=== PATIENT | male | born 1950 | race Caucasian/White ===

== ENCOUNTER 2017-12-12 19:01 | Emergency (ER) | payer BC ==
[~2017-12-12] VITALS: Ht 172.7 cm; Wt 86.2 kg
[~2017-12-12 19:01] MED LIST: ADVAIR 500/501 E1 INH; CARVEDILOL3.125 MG PO; CLOPIDOGREL75 MG PO; COMBIVENT1 AR1 IH; DAILY MULTIPLE1 TAB PO; ECOTRIN81 MG PO; FLEXERIL10 MG PO; GLUCOPHAGE500 M1 PO; MOTRIN800 MG PO; NITROSTAT0.4 MG SL; OMEGA-3 FISH1000 MG PO; PREDNICOT20 MG PO; ZESTRIL,PRINIVIL5 MG PO; ZOCOR20 MG PO
[2017-12-12 19:46] LABS: BASO % 0.2 % (0.0-1.0); EOS # 0.4 10*3/uL (0.0-0.4); EOS % 3.2 % (1.0-4.0); HEMATOCRIT 45.5 % (42.0-52.0); HEMOGLOBIN 15.2 g/dl (14.0-18.0); LYMPH # 3.2 10*3/uL (1.3-4.4); LYMPH % 23.1 % (27.0-41.0); MEAN CELL VOLUME 97.4 fl (80.0-94.0); MEAN CORPUSCULAR HGB 32.5 pg (27.0-31.0); MEAN CORPUSCULAR HGB CONC 33.4 g/dl (33.0-37.0); MONO # 1.4 10*3/uL (0.1-1.0); MONO % 9.8 % (3.0-9.0); NEUT # 8.8 10*3/uL (2.3-7.9); NEUT % 63.3 % (47.0-73.0); PLATELET COUNT AUTOMATED 223 10*3/uL (130-400); RED BLOOD COUNT 4.67 10*6/uL (4.50-5.90); RED CELL DISTRI WIDTH 12.6 % (0-14.5); WHITE BLOOD COUNT 13.9 10*3/uL (4.8-10.8)
[2017-12-12 20:07] LABS: ALBUMIN 3.7 gm/dl (3.1-4.5); ALKALINE PHOSPHATASE 108 U/L (45-117); BUN 12 mg/dl (7-24); CHLORIDE 106 mmol/L (98-107); CREATININE 1.04 mg/dL (0.70-1.30); LIPASE 159 U/L (73-393); POTASSIUM 4.2 mmol/L (3.5-5.1); SGOT/AST 20 IU/L (3-35); SGPT/ALT 29 U/L (12-78); SODIUM 141 mmol/L (136-145); TOTAL PROTEIN 7.8 gm/dL (6.4-8.2)
[2017-12-12 20:09] LABS: BILIRUBIN NEGATIVE (NEGATIVE); BLOOD NEGATIVE (NEGATIVE); CLARITY CLEAR (CLEAR); COLOR YELLOW (YELLOW); GLUCOSE NEGATIVE (NEGATIVE); KETONE NEGATIVE (NEGATIVE); LEUKO ESTERASE NEGATIVE (NEGATIVE); NITRITE NEGATIVE (NEGATIVE); SPECIFIC GRAVITY <= 1.005 (1.005-1.030); UROBILINOGEN 0.2 E.U./dl (0.2-1.0)
[2017-12-12 20:21] LABS: BACTERIA 1+; EPITHELIAL CELLS 0-2; RBC 0-2 rbc/hpf (0-2); WBC 0-2 wbc/hpf (0-5)
[2017-12-12 21:24] VITALS: BP 143/81
[2017-12-12] MEDS ORDERED: FLAGYL500 MG PO (21:29)
[2017-12-12] MEDS ORDERED: CIPRO500 MG PO (21:29)
== END 2017-12-12 23:00 | disposition home or self-care (01) ==
LOC: ED 19:01
PROVIDERS: Student in an Organized Health Care Education/Training Program
DX: K57.92 Diverticulitis of intestine, part unspecified, without perforation or abscess without bleeding (principal); Z79.82 Long term (current) use of aspirin; Z79.899 Other long term (current) drug therapy

== ENCOUNTER 2017-12-15 15:25 | Emergency (ER) | payer BC ==
[~2017-12-15] VITALS: Ht 175.2 cm; Wt 88.5 kg
[~2017-12-15 15:25] MED LIST changes: +CIPRO500 MG PO; +FLAGYL500 MG PO
[2017-12-15 17:00] VITALS: BP 104/63
[2017-12-15 17:04] LABS: BASO % 0.3 % (0.0-1.0); EOS # 0.4 10*3/uL (0.0-0.4); EOS % 3.1 % (1.0-4.0); HEMATOCRIT 36.4 % (42.0-52.0); HEMOGLOBIN 12.3 g/dl (14.0-18.0); LYMPH # 1.9 10*3/uL (1.3-4.4); LYMPH % 16.4 % (27.0-41.0); MEAN CELL VOLUME 98.6 fl (80.0-94.0); MEAN CORPUSCULAR HGB 33.3 pg (27.0-31.0); MEAN CORPUSCULAR HGB CONC 33.8 g/dl (33.0-37.0); MEAN PLATELET VOLUME 10.8 fl (9.6-12.3); MONO # 1.2 10*3/uL (0.1-1.0); MONO % 9.9 % (3.0-9.0); NEUT # 8.3 10*3/uL (2.3-7.9); PLATELET COUNT AUTOMATED 220 10*3/uL (130-400); RED BLOOD COUNT 3.69 10*6/uL (4.50-5.90); RED CELL DISTRI WIDTH 12.4 % (0-14.5); WHITE BLOOD COUNT 11.8 10*3/uL (4.8-10.8)
[2017-12-15 17:21] LABS: ALBUMIN 2.9 gm/dl (3.1-4.5); ALKALINE PHOSPHATASE 80 U/L (45-117); BUN 18 mg/dl (7-24); CHLORIDE 110 mmol/L (98-107); CREATININE 1.07 mg/dL (0.70-1.30); POTASSIUM 3.9 mmol/L (3.5-5.1); SGOT/AST 18 IU/L (3-35); SGPT/ALT 25 U/L (12-78); SODIUM 141 mmol/L (136-145); TOTAL PROTEIN 6.1 gm/dL (6.4-8.2)
[2017-12-15 17:24] LABS: TROPONIN I 0.053 ng/ml (<0.045)
== END 2017-12-15 18:20 | disposition left against medical advice (07) ==
LOC: ED 15:25
PROVIDERS: Emergency Medicine
DX: R07.89 Other chest pain (principal); K92.2 Gastrointestinal hemorrhage, unspecified; K57.32 Diverticulitis of large intestine without perforation or abscess without bleeding; I25.2 Old myocardial infarction; Z90.49 Acquired absence of other specified parts of digestive tract; Z98.890 Other specified postprocedural states; Z79.82 Long term (current) use of aspirin; Z79.899 Other long term (current) drug therapy; Z95.5 Presence of coronary angioplasty implant and graft

== ENCOUNTER 2017-12-21 07:48 | Inpatient (IN) | payer BC, MEDICARE ==
[~2017-12-21] VITALS: Ht 172.7 cm; Wt 82.7 kg
[2017-12-21] VITALS (10 sets, daily range): BP systolic 88–118; BP diastolic 44–68
--- NOTE | ~2017-12-21 | CON ---
[place], [place] REPORT OF CONSULTATION NAME: [facility]ODER [facility] #: [id number] UNIT #: [id number] ROOM: [facility] DOCTOR: YSABEL JAIMES MD BIRTHDATE: [birth year] DOS: 12/21/2017 REASON FOR CONSULTATION: Chest discomfort, rectal bleeding. HISTORY OF PRESENT ILLNESS: The patient is a 67-year-old man who was seen in the intensive care unit today 12/21/2017 with his in attendance. He does have a long history of atherosclerotic heart disease and tells me that he presented initially with IL in 1994. He was catheterized at the [facility], [place] and a stent was placed. Those records are not currently available. He has subsequently had other events and has received a total of 6 stents. He has had catheterization at the [facility] and [facility] in [place]. His most recent catheterization in July 2013 was prompted by a myocardial infarction. He had a single stent placed at that time and again the records are not available. Currently, he follows with Dr. Vallecillo at the [facility] in [place]. The patient began having problems recently with heavy rectal bleeding about a week or two ago. He is passing bright red blood from his rectum with clots. He has been to the emergency room several times and was advised admission, but resisted. The first of these episodes occurred a little over a week ago at which time he not only was having bright red blood per rectum, but also having some chest heaviness. He states this was different from the chest pain he had had previously with myocardial infarctions and he believes that it was just due to anxiety; however, my concern is that he does have established coronary artery disease with an ischemic cardiomyopathy and rectal bleeding is probably the significant hemodynamic stress; therefore, this may still represent angina. PAST MEDICAL HISTORY: Includes 1. Coronary artery disease, status post multiple catheterizations and a total of 6 stents in the past. Details are not available. 2. Diverticulitis. 3. GI bleeding. 4. Hyperlipidemia. 5. Hypertension. 6. History of cholecystectomy. MEDICATIONS: Prior to admission, Advair Diskus 500/50 one puff b.i.d., aspirin 81 mg per day, clopidogrel 75 mg per day, carvedilol 3.125 mg b.i.d., lisinopril 5 mg daily, metronidazole 500 mg t.i.d., ciprofloxacin 500 mg b.i.d., multivitamin daily and simvastatin 20 mg at bedtime. ALLERGIES: He lists no known drug allergies. FAMILY HISTORY: His father at age 70 and mother of lung cancer at age 75. There is no family history of early coronary disease. REVIEW OF SYSTEMS: The patient denies diplopia, loss of vision. Denies focal weakness. He denies fevers, chills, sweats or recent weight change. He has had some nausea and vomiting. He has had episodes of lightheadedness, especially with change in posture. He has had the episode of chest heaviness noted above. [place], [place] REPORT OF CONSULTATION NAME: TYLER YODER UNIT #: [id number] ROOM: [facility] DOCTOR: YSABEL JAIMES MD BIRTHDATE: [birth year] He denies hematemesis or hemoptysis. He has had some abdominal distention and abdominal discomfort. He denies any hematuria. He did have 1 syncopal episode after a heme-positive stool. He denies any peripheral edema or skin rashes. He denies any hot or swollen joints. Remainder of the review of systems is negative except as noted above. SOCIAL HISTORY: The patient is and lives with his . He was a smoker, but quit. He does not consume any alcohol currently. PHYSICAL EXAMINATION: GENERAL: Reveals a well-nourished white male who is awake, alert and oriented. VITAL SIGNS: Pulse is 60 and regular, blood pressure is 118/68. He is afebrile. He weighs 82.7 kg and has a body mass index 27.7. HEENT: Normocephalic and atraumatic. Extraocular muscles are intact. Sclerae are clear. Pupils are equal, round and react to light. The oral mucosa is moist. Tongue is midline. NECK: Supple. He has no jugular distention. Carotids are full. He has no bruits. He has no neck or supraclavicular masses, no thyromegaly. LUNGS: Respirations are unlabored. His chest is clear to auscultation and percussion. He has no presacral edema or chest wall tenderness. CARDIOVASCULAR: His heart has a regular rhythm. He has a fourth heart sound, but no third heart sound or murmur. The PMI is not displaced. He has no precordial heave, lift or thrill. ABDOMEN: Soft and normally active. It is nontender. There are no masses or organomegaly. There is no rebound. EXTREMITIES: Showed no clubbing, cyanosis or edema. Peripheral pulses are palpable in the feet. LABORATORY DATA: His electrocardiogram shows sinus rhythm with small inferior Q-waves, no acute ST elevation or depression is present. Troponin levels are minimally elevated at 0.034 and 0.036; on 12/15/2017 when his bleeding first began, the troponin was 0.053. IMPRESSIONS: 1. History of coronary artery disease. 2. Ischemic cardiomyopathy. Echocardiogram in December 2012 showed an ejection fraction between 35 and 40% with a mildly dilated left ventricle and mid to distal anterior septal apical severe hypokinesis. The basal inferior wall was also akinetic. No thrombus was seen. 3. Status post several catheterizations with multiple stents placed. 4. History of hypertension. 5. History of hyperlipidemia. 6. Presentation with acute lower gastrointestinal bleeding. 7. Chest discomfort and minimally elevated troponin levels. This may be due to demand ischemia, but may be also unstable angina. PLAN: I agree with the transfusion that the patient is receiving and we will observe him carefully with his other physicians. I think that a better idea of his current cardiac condition will be very helpful as we plan surgical management; therefore, I will proceed with a pharmacologic stress test within [place], [place] REPORT OF CONSULTATION NAME: TYLER YODER UNIT #: [id number] ROOM: [facility] DOCTOR: YSABEL JAIMES MD BIRTHDATE: [birth year] the next 24 hours. Further recommendations will depend upon the results of the stress test. [facility] and I thank the hospitalist physicians for asking our advice regarding the patient's care. YSABEL JAIMES MD CM:CONSTR:REPORT OF CONSULTATION 1706 12/21/17 [id number] interface
--- NOTE | ~2017-12-21 | PR ---
[place], [place] PROGRESS NOTE NAME: TYLER YODER [facility] #: [id number] UNIT #: [id number] ROOM: [facility] DOCTOR: YSABEL JAIMES MD BIRTHDATE: [birth year] DOS: 12/22/2017 SUBJECTIVE: The patient was seen in the Cardiology Department just prior to his stress test on 12/22/2017. He is a 67-year-old man who has a history of coronary artery disease and is currently being followed by Dr. Vallecillo at the [facility]. He presented now with a week or so of bright red blood per rectum. He was bleeding heavily. About a week prior to the hospitalization, he also has noticed some heaviness in his chest. This was different from what he had experienced previously with acute coronary syndrome, but was concerning, especially when we are considering further GI evaluation and treatment. Overnight, he has had no further chest discomfort. He has had a decrease in the amount of blood per rectum, but he still states that he has some dark blood in his stools. He has had no palpitations or lightheadedness. Serial troponin levels have shown a slight elevation with a maximum measured troponin level of 0.087. His hemoglobin on admission was 12.1 and has fallen to 11.3 despite the fact that he was given blood shortly after admission. OBJECTIVE: VITAL SIGNS: On exam today, his pulse is 66 and regular, blood pressure is 100/65. He is afebrile. NECK: Supple. He has no jugular distention. Carotids are full. I heard no bruits. He had no neck or supraclavicular masses. CHEST: Respirations are unlabored. His chest is clear to auscultation and percussion. He has no presacral edema or chest wall tenderness. HEART: Has a regular rhythm with an S4 gallop, but no S3. The PMI is not displaced. He has no precordial heave, lift or thrill. ABDOMEN: Soft and normally active without masses, organomegaly or bruits. EXTREMITIES: Showed no edema. IMPRESSION: 1. History of coronary artery disease. 2. Ischemic cardiomyopathy. Ejection fraction was estimated to be between 35 and 40% at the time of his last echocardiogram, which was done in December 2012. The basal inferior wall was akinetic with mid and distal anteroseptal and apical severe hypokinesis. There was no thrombus. 3. Status post multiple catheterizations and multiple stent placements. 4. History of hypertension. 5. History of hyperlipidemia. 6. Acute lower gastrointestinal bleeding. 7. Mild elevation in troponin, which probably represents a type 2 myocardial injury (demand ischemia). PLAN: We will proceed with a pharmacologic stress test today in order to stratify his risks. After that we will have a better idea as to what his risk for surgery might be if he were to require colonoscopy or other procedures. We thank the hospitalist physicians for asking our advice regarding his care. [place], [place] PROGRESS NOTE NAME: PARESHTYLER Ariela UNIT #: [id number] ROOM: [facility] DOCTOR: YSABEL JAIMES MD BIRTHDATE: [birth year] YSABEL JAIMES MD CM:PNTRANS [id number] YSABEL JAIMES MD 12/22/17 1005 interface
[2017-12-21 08:22] LABS: HEMATOCRIT 36.5 % (42.0-52.0); HEMOGLOBIN 12.1 g/dl (14.0-18.0); MEAN CELL VOLUME 98.4 fl (80.0-94.0); MEAN CORPUSCULAR HGB 32.6 pg (27.0-31.0); MEAN CORPUSCULAR HGB CONC 33.2 g/dl (33.0-37.0); MEAN PLATELET VOLUME 10.7 fl (9.6-12.3); NUCLEATED RED BLOOD CELL 0.1 % (0.0-0.0); PLATELET COUNT AUTOMATED 318 10*3/uL (130-400); RED BLOOD COUNT 3.71 10*6/uL (4.50-5.90); RED CELL DISTRI WIDTH 13.1 % (0-14.5); WHITE BLOOD COUNT 15.8 10*3/uL (4.8-10.8)
[2017-12-21 08:31] LABS: ACT PARTIAL THROMBO TIME 22.8 SECONDS (20.8-31.5)
[2017-12-21 08:38] LABS: ALBUMIN 3.3 gm/dl (3.1-4.5); ALKALINE PHOSPHATASE 76 U/L (45-117); BUN 9 mg/dl (7-24); CHLORIDE 108 mmol/L (98-107); CREATININE 1.07 mg/dL (0.70-1.30); LIPASE 374 U/L (73-393); POTASSIUM 4.1 mmol/L (3.5-5.1); SGOT/AST 26 IU/L (3-35); SGPT/ALT 40 U/L (12-78); SODIUM 140 mmol/L (136-145); TOTAL PROTEIN 6.5 gm/dL (6.4-8.2); TROPONIN I 0.034 ng/ml (<0.045)
[2017-12-21 08:41] LABS: PLATELET SUFFICIENCY NORMAL (NORMAL); TOTAL CELLS COUNTED 100 #CELLS
[2017-12-21 17:49] LABS: HEMATOCRIT 36.4 % (42.0-52.0); HEMOGLOBIN 12.2 g/dl (14.0-18.0)
[2017-12-22] VITALS: BP 132/67
[2017-12-22 00:07] LABS: HEMATOCRIT 34.6 % (42.0-52.0); HEMOGLOBIN 11.4 g/dl (14.0-18.0)
[2017-12-22 04:00] VITALS: BP 127/67
[2017-12-22 05:57] LABS: BASO % 0.3 % (0.0-1.0); EOS # 0.3 10*3/uL (0.0-0.4); EOS % 2.7 % (1.0-4.0); HEMATOCRIT 33.8 % (42.0-52.0); HEMOGLOBIN 11.3 g/dl (14.0-18.0); LYMPH # 2.1 10*3/uL (1.3-4.4); LYMPH % 22.2 % (27.0-41.0); MEAN CELL VOLUME 97.7 fl (80.0-94.0); MEAN CORPUSCULAR HGB 32.7 pg (27.0-31.0); MEAN CORPUSCULAR HGB CONC 33.4 g/dl (33.0-37.0); MEAN PLATELET VOLUME 10.4 fl (9.6-12.3); MONO # 0.9 10*3/uL (0.1-1.0); NEUT % 64.4 % (47.0-73.0); PLATELET COUNT AUTOMATED 234 10*3/uL (130-400); RED BLOOD COUNT 3.46 10*6/uL (4.50-5.90); RED CELL DISTRI WIDTH 14.3 % (0-14.5); WHITE BLOOD COUNT 9.3 10*3/uL (4.8-10.8)
[2017-12-22 06:24] LABS: ALBUMIN 2.9 gm/dl (3.1-4.5); ALKALINE PHOSPHATASE 61 U/L (45-117); BUN 6 mg/dl (7-24); CHLORIDE 112 mmol/L (98-107); CHOLESTEROL 86 mg/dL (<200); CREATININE 0.92 mg/dL (0.70-1.30); HDL CHOLESTEROL 43 mg/dl (40-60); LDL CHOLESTEROL 22 mg/dL (9-159); PHOSPHOROUS 2.8 mg/dL (2.5-4.9); POTASSIUM 3.7 mmol/L (3.5-5.1); SGOT/AST 26 IU/L (3-35); SGPT/ALT 31 U/L (12-78); SODIUM 145 mmol/L (136-145); TOTAL PROTEIN 5.7 gm/dL (6.4-8.2); TRIGLYCERIDES 105 mg/dl (<150); VLDL CHOLESTEROL 21 mg/dL (6-40)
[2017-12-22 06:30] LABS: FREE T4 1.11 ng/dl (0.76-1.46); THYROID STIM HORMONE (HS) 0.995 uIU/ml (0.358-4.75)
[2017-12-22 08:00] VITALS: BP 100/65
[2017-12-22 08:37] LABS: VITAMIN D, 25-HYDROXY 18.1 ng/mL (30-100)
[2017-12-22 11:58] LABS: HEMATOCRIT 34.6 % (42.0-52.0); HEMOGLOBIN 11.5 g/dl (14.0-18.0)
[2017-12-22 12:00] VITALS: BP 122/70
[2017-12-22 16:00] VITALS: BP 127/60
[2017-12-22 18:08] LABS: HEMATOCRIT 35.4 % (42.0-52.0); HEMOGLOBIN 11.8 g/dl (14.0-18.0)
[2017-12-22 20:33] VITALS: BP 159/71
[2017-12-23] VITALS (8 sets, daily range): BP systolic 103–152; BP diastolic 60–78
[2017-12-23 00:34] LABS: HEMOGLOBIN 10.7 g/dl (14.0-18.0)
[2017-12-23 06:15] LABS: HEMATOCRIT 32.8 % (42.0-52.0)
[2017-12-23 14:21] LABS: HEMATOCRIT 35.6 % (42.0-52.0); HEMOGLOBIN 11.6 g/dl (14.0-18.0)
== END 2017-12-23 17:29 | disposition home or self-care (01) | DRG 378 ==
LOC: ED 07:48 → 4E 10:10 → EDHOLD 10:10 → ICCU 10:10 → 4E 12-22 12:31
PROVIDERS: Emergency Medicine; Registered Nurse
PROC: 30233N1 Transfusion of Nonautologous Red Blood Cells into Peripheral Vein, Percutaneous Approach (ICD-10-PCS; principal; 2017-12-21)
PROC: 3E073KZ Introduction of Other Diagnostic Substance into Coronary Artery, Percutaneous Approach (ICD-10-PCS; 2017-12-22)
PROC: 4A02XM4 Measurement of Cardiac Total Activity, External Approach (ICD-10-PCS; 2017-12-22)
PROC: 0DBL8ZX Excision of Transverse Colon, Via Natural or Artificial Opening Endoscopic, Diagnostic (ICD-10-PCS; 2017-12-23)
DX: K57.33 Diverticulitis of large intestine without perforation or abscess with bleeding (principal); D62 Acute posthemorrhagic anemia; E87.2 Acidosis; I95.9 Hypotension, unspecified; E87.8 Other disorders of electrolyte and fluid balance, not elsewhere classified; J44.9 Chronic obstructive pulmonary disease, unspecified; N28.1 Cyst of kidney, acquired; I71.4 Abdominal aortic aneurysm, without rupture; I25.10 Atherosclerotic heart disease of native coronary artery without angina pectoris; R55 Syncope and collapse; E78.00 Pure hypercholesterolemia, unspecified; R73.9 Hyperglycemia, unspecified; I25.5 Ischemic cardiomyopathy; I10 Essential (primary) hypertension; E78.5 Hyperlipidemia, unspecified; I25.2 Old myocardial infarction

== ENCOUNTER → 2023-07-05 | Outpatient (CLI) | payer MEDICARE ==
[~2023-07-05] MED LIST changes: +PROTONIX40 MG PO; +TRELEGY ELLIPT1 EACH INH; +XANAX0.5 MG PO
== END | disposition home or self-care (01) ==
LOC: RESCLI 01:16
PROVIDERS: ATTEND Emergency Medicine
DX: J44.9 Chronic obstructive pulmonary disease, unspecified (principal); E78.5 Hyperlipidemia, unspecified; I10 Essential (primary) hypertension; F41.9 Anxiety disorder, unspecified; F17.210 Nicotine dependence, cigarettes, uncomplicated; Z98.890 Other specified postprocedural states; Z79.899 Other long term (current) drug therapy

== ENCOUNTER 2025-04-22 10:16 | Emergency (ER) | payer MEDICARE, OTHER ==
[~2025-04-22] VITALS: Ht 172.7 cm; Wt 74.8 kg
[2025-04-22 10:28] VITALS: BP 134/50
[2025-04-22] MEDS ORDERED: methylPREDNISolone sod succ 125 MG VIAL IM ONE (11:40)
[2025-04-22] MEDS ORDERED: AZITHROMYCIN 250 MG TAB PO ONE (11:45)
[2025-04-22] MEDS ORDERED: BENZONATATE 100 MG CAP PO ONE (11:55)
[2025-04-22] MEDS ORDERED: AVPAK AZITHROM250 M1 PO (12:08)
[2025-04-22] MEDS ORDERED: BENZONATATE100 M1 PO (12:08)
[2025-04-22] MEDS ORDERED: PREDNISONE50 MG PO (12:08)
== END 2025-04-22 12:14 | disposition home or self-care (01) ==
LOC: ED 10:16
DX: R04.2 Hemoptysis (principal); I10 Essential (primary) hypertension; F32.A Depression, unspecified; F41.9 Anxiety disorder, unspecified; I25.10 Atherosclerotic heart disease of native coronary artery without angina pectoris; Z79.899 Other long term (current) drug therapy; Z90.49 Acquired absence of other specified parts of digestive tract; Z98.890 Other specified postprocedural states